=== PATIENT | female | born 1995 | race Caucasian/White ===

== ENCOUNTER 2021-05-25 09:29 | Outpatient (CLI) | payer OTHER ==
[2021-05-25 09:56] LABS: BHCG - Serum Negative (NEGATIVE); Pregs Control Background? CLEAR/WHITE (CLR/WHITE); Pregs Control Bar Appear? YES (CONTROL BAR)
== END 2021-05-25 09:30 | disposition home or self-care (01) ==
LOC: RAD 09:29
PROVIDERS: ATTEND Psychiatry & Neurology Neurology
DX: N97.0 Female infertility associated with anovulation (principal); Z32.00 Encounter for pregnancy test, result unknown
CPT/HCPCS: 36415; 58340; 74740; 84703